=== PATIENT | male | born 1975 | race Caucasian/White ===

== ENCOUNTER 2019-09-21 16:59 | Outpatient (CLI) | payer OTHER, SELFPAY ==
--- NOTE | ~2019-09-21 | XR_ITS ---
XR shoulder LT min 2V, XR humerus LT 09/21/2019 17:35 Indication: Left shoulder and arm pain Procedure: 4 views left shoulder and 2 views left humerus Comparison: No prior studies Findings: There are mild degenerative changes of the left acromioclavicular and glenohumeral joints. There is a healed left clavicular fracture. No acute fracture or traumatic malalignment. Visualized l isreal parenchyma unremarkable. No significant soft tissue abnormality. No radiopaque foreign bodies. Impression: 1: No acute fracture. 2: Mild polyarticular osteoarthritis of the left shoulder. Reviewed, dictated and finalized at location A. [facility] Impression: 1: No acute fracture. 2: Mild polyarticular osteoarthritis of the left shoulder. Impression: 1: No acute fracture. 2: Mild polyarticular osteoarthritis of the left shoulder.
== END 2019-09-21 17:00 | disposition home or self-care (01) ==
LOC: ANHIMG 17:04
PROVIDERS: PCP Family Medicine; Visit Provider Nurse Practitioner Family
DX: M25.512 Pain in left shoulder (principal); M79.602 Pain in left arm; M19.012 Primary osteoarthritis, left shoulder
CPT/HCPCS: 73030; 73060